=== PATIENT | male | born 1940 | race Caucasian/White ===

== ENCOUNTER 2022-12-18 19:20 | Emergency (ER) | payer MEDICARE, OTHER ==
[2022-12-18] MEDS ORDERED: Sodium Chloride 0.9% 10 ML Syringe FLUSH PRN (19:39)
[2022-12-18 20:06] LABS: ANION GAP 16.7 mEq/L (7-13)
[2022-12-18] MEDS ORDERED: Sodium Chloride 0.9% 1,000 ML IV ONE (20:15)
[2022-12-18 20:20] LABS: PTT,PARTIAL THROMBOPLSTIN TIME 21.9 SEC (22.0-34.0)
[2022-12-18] MEDS ORDERED: Heparin Sodium 5,000 Units/ML Vial IVPUSH ONE (23:12)
[2022-12-18] MEDS ORDERED: Clopidogrel 75 MG Tab PO ONE (23:29)
[2022-12-18] MEDS ORDERED: Heparin Sodium/0.45% NaCl 25,000 UNITS/500 ML BAG IV SCH (23:30)
[2022-12-18] MEDS ORDERED: Aspirin 81 MG Tab.Chew PO ONE (23:30)
[2022-12-19 00:06] VITALS: BP 93/62; PULSE 95
== END 2022-12-19 00:37 ==
LOC: DL.ED 19:20
DX: I21.4 Non-ST elevation (NSTEMI) myocardial infarction (principal); I25.10 Atherosclerotic heart disease of native coronary artery without angina pectoris; E78.00 Pure hypercholesterolemia, unspecified; I10 Essential (primary) hypertension; Z95.1 Presence of aortocoronary bypass graft; Z79.899 Other long term (current) drug therapy
CPT/HCPCS: 36415; 80053; 82272; 83880; 84484; 85025; 85610; 85730; 93005; 93010; 96361; 96365; 96376; 99285; A9270; J1644; J3490; J7030

== ENCOUNTER 2023-05-04 05:51 | Day surgery (SDC) | payer MEDICARE, OTHER ==
[2023-05-04] MEDS ORDERED: fentaNYL 100 MCG/2 ML SDV IV ONE ×3 (05:52→07:12)
[2023-05-04] MEDS ORDERED: Midazolam 1 MG/ML 2 ML SDV IV ONE ×2 (05:52→07:12)
[2023-05-04] MEDS ORDERED: Dextrose 5%-0.45% NaCl 1,000 ML IV SCH (06:30)
[2023-05-04] MEDS ORDERED: Midazolam 1 MG/ML 2 ML SDV ONE (07:01)
[2023-05-04] MEDS ORDERED: fentaNYL 100 MCG/2 ML SDV ONE (07:02)
[2023-05-04 08:37] VITALS: BP 176/67; PULSE 62
== END 2023-05-04 09:13 | disposition home or self-care (01) ==
LOC: DL.ENDO 05:51
PROVIDERS: ATTEND Internal Medicine Gastroenterology
DX: K25.9 Gastric ulcer, unspecified as acute or chronic, without hemorrhage or perforation (principal); K52.9 Noninfective gastroenteritis and colitis, unspecified; E78.5 Hyperlipidemia, unspecified; F41.1 Generalized anxiety disorder; I10 Essential (primary) hypertension; I25.10 Atherosclerotic heart disease of native coronary artery without angina pectoris; I25.2 Old myocardial infarction; I71.40 Abdominal aortic aneurysm, without rupture, unspecified; Z98.84 Bariatric surgery status
CPT/HCPCS: 43239; 87077; J2250; J3010; J7042

== ENCOUNTER 2024-02-23 12:02 | Emergency (ER) | payer MEDICARE, OTHER ==
[2024-02-23 12:24] VITALS: BP 201/94; PULSE 74
[2024-02-23] MEDS: Furosemide 40 MG/4 ML VIAL IVPUSH ONE (12:38)
== END 2024-02-23 13:24 ==
LOC: DL.ED 12:02
DX: I11.0 Hypertensive heart disease with heart failure (principal); I50.9 Heart failure, unspecified; E78.00 Pure hypercholesterolemia, unspecified; I25.10 Atherosclerotic heart disease of native coronary artery without angina pectoris; K21.9 Gastro-esophageal reflux disease without esophagitis; R79.89 Other specified abnormal findings of blood chemistry; Z79.82 Long term (current) use of aspirin; Z79.899 Other long term (current) drug therapy; Z95.1 Presence of aortocoronary bypass graft
CPT/HCPCS: 36415; 84484; 93005; 93010; 96374; 99284; 99285-25; J1940

== ENCOUNTER 2024-08-23 16:25 | Inpatient (IN) | payer MEDICARE, OTHER ==
[2024-08-23 16:47] LABS: BASOPHILS PERCENT AUTO 0.1 % (0.0-1.0); HEMATOCRIT 31.2 % (40.0-54.0); HEMOGLOBIN 10.4 g/dL (14.0-18.0); LYMPHOCYTES PERCENT AUTO 12.3 % (20.5-50.1); MEAN CORPUSCULAR HEMOGLOBIN 34.4 pg (27.0-34.0); MEAN CORPUSCULAR HGB CONC 33.3 g/dL (33.0-35.0); MEAN CORPUSCULAR VOLUME 103.3 fL (80-100); MONOCYTES PERCENT AUTO 12.7 % (2-8); NEUTROPHILS PERCENT AUTO 73.9 % (42.2-75.2); PLATELET COUNT,PLT 159 10^3/uL (150-450); RED BLOOD CELL COUNT 3.02 10^6/uL (4.6-6.2); WHITE BLOOD CELL COUNT,WBC 7.3 10^3/uL (5.0-10.0)
[2024-08-23] MEDS: Aspirin 81 MG Tab.Chew PO ONE (16:50)
[2024-08-23 17:11] LABS: A/G RATIO 0.9; ALANINE AMINOTRANSFERASE,ALT 20 U/L (16-63); ALBUMIN 3.6 g/dL (3.4-5.0); ALKALINE PHOSPHATASE 84 U/L (46-116); ASPARTATE AMNIOTRANSFERASE,AST 23 U/L (15-37); BILIRUBIN TOTAL 0.8 mg/dL (0.2-1.0); BLOOD UREA NITROGEN,BUN 19 mg/dL (7-18); BUN/CREATININE RATIO 12.3 (No establ ref range); C-REACTIVE PROTEIN 0.74 ng/dL (<=0.50); CALCIUM 8.7 mg/dL (8.5-10.1); CARBON DIOXIDE,CO2 24 mmol/L (21-32); CHLORIDE,CL 97 mmol/L (98-107); CREATININE 1.54 mg/dL (0.70-1.30); EST CRCL DRUG DOSING (CG) 17.32 mL/min; GLUCOSE RANDOM 122 mg/dL (70-99); LIPASE 42 U/L (16-77); MAGNESIUM 1.4 mg/dL (1.8-2.4); PROTEIN TOTAL,TP 7.6 g/dL (6.4-8.2); SODIUM,NA 133 mmol/L (136-145); TSH ULTRASENSITIVE 2.66 uIU/mL (0.36-3.74)
[2024-08-23] MEDS: Sodium Chloride 0.9% 10 ML Syringe FLUSH PRN (17:14)
[2024-08-23 17:22] LABS: ESTIMATED GFR 45 mL/min (>=60)
[2024-08-23 17:24] LABS: B-TYPE NATRIURETIC PEPTIDE,BNP > 5000 pg/ml (0-100)
[2024-08-23 17:37] LABS: FOLIC ACID 9.4 ng/mL (8.6-58.9)
[2024-08-23] MEDS: Bumetanide 1 MG/4 ML MDV IVPUSH ONE (17:40)
[2024-08-23] MEDS ORDERED: Metoprolol Tartrate 5 MG/5 ML SDV IVPUSH PRN (19:51)
[2024-08-23] MEDS: hydrALAZINE 20 MG/ML SDV IVPUSH PRN (20:15)
[2024-08-23] MEDS ORDERED: Sennosides/Docusate Sodium 50-8.6 MG Tab PO PRN (22:14)
[2024-08-23] MEDS ORDERED: HYDROmorphone 0.5 MG/0.5 ML Syringe IVPUSH PRN (22:14)
[2024-08-23] MEDS ORDERED: Acetaminophen 325 MG Tab PO PRN (22:14)
[2024-08-23] MEDS ORDERED: Magnesium Hydroxide 400 MG/5 ML Susp 30 ML Cup PO PRN (22:14)
[2024-08-23] MEDS ORDERED: Metoclopramide 10 MG/2 ML SDV IV PRN (22:14)
[2024-08-23] MEDS ORDERED: Polyethylene Glycol 3350 Powder 17 GM Packet PO PRN (22:14)
[2024-08-23] MEDS ORDERED: Naloxone 2 MG/2 ML Syringe IVPUSH PRN (22:14)
[2024-08-23] MEDS ORDERED: Ondansetron 4 MG/2 ML SDV IVPUSH PRN (22:14)
[2024-08-23] MEDS ORDERED: Albuterol/Ipratropium 3.0-0.5 MG/3 ML Neb Soln NEB PRN (22:14)
[2024-08-23] MEDS ORDERED: traMADol 50 MG Tab PO PRN (22:17)
[2024-08-23] MEDS ORDERED: hydrALAZINE 20 MG/ML SDV IVPUSH PRN (22:49)
[2024-08-23] MEDS: amLODIPine 5 MG Tab PO ONE (23:10)
[2024-08-24 06:48] LABS: BASOPHILS PERCENT AUTO 0.2 % (0.0-1.0); EOSINOPHILS PERCENT AUTO 1.9 % (1.0-3.0); HEMATOCRIT 27.1 % (40.0-54.0); HEMOGLOBIN 9.1 g/dL (14.0-18.0); LYMPHOCYTES PERCENT AUTO 13.2 % (20.5-50.1); MEAN CORPUSCULAR HEMOGLOBIN 34.1 pg (27.0-34.0); MEAN CORPUSCULAR HGB CONC 33.6 g/dL (33.0-35.0); MEAN CORPUSCULAR VOLUME 101.5 fL (80-100); MONOCYTES PERCENT AUTO 18.1 % (2-8); NEUTROPHILS PERCENT AUTO 66.6 % (42.2-75.2); PLATELET COUNT,PLT 122 10^3/uL (150-450); RED BLOOD CELL COUNT 2.67 10^6/uL (4.6-6.2); WHITE BLOOD CELL COUNT,WBC 5.3 10^3/uL (5.0-10.0)
[2024-08-24 07:23] LABS: ALBUMIN 3.2 g/dL (3.4-5.0); ANION GAP 12.5 mEq/L (7-13); BILIRUBIN TOTAL 0.9 mg/dL (0.2-1.0); CALCIUM 8.3 mg/dL (8.5-10.1); CREATININE 1.31 mg/dL (0.70-1.30); EST CRCL DRUG DOSING (CG) 42.06 mL/min; MAGNESIUM 1.5 mg/dL (1.8-2.4); POTASSIUM,K 3.5 mmol/L (3.5-5.1); PROTEIN TOTAL,TP 6.7 g/dL (6.4-8.2); T4 FREE 1.38 ng/dL (0.76-1.46)
[2024-08-24 07:29] LABS: A/G RATIO 0.91
[2024-08-24] MEDS: Clopidogrel 75 MG Tab PO SCH (09:16)
[2024-08-24] MEDS: Magnesium Sulfate/Water Premix 2 GM in Premix Bag 1 BAG IV ONE ×2 (09:16→16:32)
[2024-08-24] MEDS: Aspirin 81 MG Tab.Chew PO SCH (09:16)
[2024-08-24] MEDS: Bumetanide 1 MG Tab PO SCH (09:16)
[2024-08-24] MEDS: Sucralfate 1 GM Tab PO SCH (09:17)
[2024-08-24] MEDS: Metoprolol Succinate 50 MG Tab.ER PO SCH (09:17)
[2024-08-24] MEDS: amLODIPine 5 MG Tab PO SCH (09:17)
[2024-08-24] MEDS: Pantoprazole 40 MG Tab.CR PO SCH (09:17)
[2024-08-24] MEDS: ENTRESTO PO SCH (20:12)
[2024-08-24] MEDS: Melatonin 3 MG Tab PO PRN (20:13)
[2024-08-24] MEDS: Non-Formulary Medication 1 Each (Atorvastatin [Lipitor] 40 MG Tablet) PO SCH (22:55)
[2024-08-25 07:03] LABS: BASOPHILS PERCENT AUTO 0.4 % (0.0-1.0); EOSINOPHILS PERCENT AUTO 3.5 % (1.0-3.0); HEMATOCRIT 26.4 % (40.0-54.0); LYMPHOCYTES PERCENT AUTO 14.5 % (20.5-50.1); MEAN CORPUSCULAR HEMOGLOBIN 34.6 pg (27.0-34.0); MEAN CORPUSCULAR HGB CONC 34.1 g/dL (33.0-35.0); MEAN CORPUSCULAR VOLUME 101.5 fL (80-100); MONOCYTES PERCENT AUTO 16.4 % (2-8); NEUTROPHILS PERCENT AUTO 65.2 % (42.2-75.2); PLATELET COUNT,PLT 118 10^3/uL (150-450); WHITE BLOOD CELL COUNT,WBC 5.2 10^3/uL (5.0-10.0)
[2024-08-25 07:27] LABS: ANION GAP 11.8 mEq/L (7-13); BILIRUBIN TOTAL 0.6 mg/dL (0.2-1.0); BUN/CREATININE RATIO 14.6 (No establ ref range); CALCIUM 8.2 mg/dL (8.5-10.1); CREATININE 1.37 mg/dL (0.70-1.30); EST CRCL DRUG DOSING (CG) 40.22 mL/min; MAGNESIUM 2.2 mg/dL (1.8-2.4); POTASSIUM,K 3.8 mmol/L (3.5-5.1); PROTEIN TOTAL,TP 6.5 g/dL (6.4-8.2)
[2024-08-25 07:30] LABS: A/G RATIO 0.86
[2024-08-26 06:31] LABS: BASOPHILS PERCENT AUTO 0.4 % (0.0-1.0); EOSINOPHILS PERCENT AUTO 5.4 % (1.0-3.0); HEMATOCRIT 27.7 % (40.0-54.0); HEMOGLOBIN 9.3 g/dL (14.0-18.0); LYMPHOCYTES PERCENT AUTO 21.4 % (20.5-50.1); MEAN CORPUSCULAR HEMOGLOBIN 34.3 pg (27.0-34.0); MEAN CORPUSCULAR HGB CONC 33.6 g/dL (33.0-35.0); MEAN CORPUSCULAR VOLUME 102.2 fL (80-100); MONOCYTES PERCENT AUTO 17.6 % (2-8); NEUTROPHILS PERCENT AUTO 55.2 % (42.2-75.2); PLATELET COUNT,PLT 124 10^3/uL (150-450); RED BLOOD CELL COUNT 2.71 10^6/uL (4.6-6.2); WHITE BLOOD CELL COUNT,WBC 4.7 10^3/uL (5.0-10.0)
[2024-08-26 07:03] LABS: ANION GAP 12.5 mEq/L (7-13); BILIRUBIN TOTAL 0.5 mg/dL (0.2-1.0); BUN/CREATININE RATIO 15.2 (No establ ref range); CALCIUM 8.1 mg/dL (8.5-10.1); CREATININE 1.51 mg/dL (0.70-1.30); EST CRCL DRUG DOSING (CG) 35.28 mL/min; MAGNESIUM 1.9 mg/dL (1.8-2.4); POTASSIUM,K 4.5 mmol/L (3.5-5.1); PROTEIN TOTAL,TP 6.6 g/dL (6.4-8.2)
[2024-08-26 07:06] LABS: A/G RATIO 0.83
[2024-08-26 08:21] LABS: HEMOGLOBIN A1C 5.4 % (<5.7)
[2024-08-26 10:56] VITALS: BP 110/53; PULSE 67
[2024-08-26] MEDS ORDERED: atorvaSTATin 20 MG Tab PO SCH (21:00)
== END 2024-08-26 12:00 | disposition home or self-care (01) | DRG 280 ==
LOC: DL.ED 16:25 → DL.MS 19:08
PROVIDERS: ADMIT Internal Medicine; ATTEND Internal Medicine
DX: I21.4 Non-ST elevation (NSTEMI) myocardial infarction (principal); I50.9 Heart failure, unspecified; I50.33 Acute on chronic diastolic (congestive) heart failure; E87.1 Hypo-osmolality and hyponatremia; N17.9 Acute kidney failure, unspecified; Z79.899 Other long term (current) drug therapy; Z79.02 Long term (current) use of antithrombotics/antiplatelets; Z79.82 Long term (current) use of aspirin; I25.10 Atherosclerotic heart disease of native coronary artery without angina pectoris; K21.9 Gastro-esophageal reflux disease without esophagitis; K52.9 Noninfective gastroenteritis and colitis, unspecified; G89.29 Other chronic pain; E53.8 Deficiency of other specified B group vitamins; E83.42 Hypomagnesemia; E87.8 Other disorders of electrolyte and fluid balance, not elsewhere classified; Z66 Do not resuscitate; F17.210 Nicotine dependence, cigarettes, uncomplicated; G43.909 Migraine, unspecified, not intractable, without status migrainosus; E78.00 Pure hypercholesterolemia, unspecified; M54.9 Dorsalgia, unspecified; G40.909 Epilepsy, unspecified, not intractable, without status epilepticus; F41.9 Anxiety disorder, unspecified; I11.0 Hypertensive heart disease with heart failure; D53.9 Nutritional anemia, unspecified; R73.9 Hyperglycemia, unspecified; Z91.148 Patient's other noncompliance with medication regimen for other reason; Z95.1 Presence of aortocoronary bypass graft
CPT/HCPCS: 36415; 71045; 80053; 82607; 82746; 83690; 83735; 83880; 84443; 84484 ×2; 85025; 86140; 87428; 93005; 96374; 99285; A9270; J3490; 80061; 82947; 83036; 84439; 93010; J0360; J3475

== ENCOUNTER 2025-01-21 12:40 | Emergency (ER) | payer MEDICARE, OTHER ==
[2025-01-21] MEDS ORDERED: Sodium Chloride 0.9% 10 ML Syringe FLUSH PRN (12:54)
[2025-01-21 13:09] LABS: BASOPHILS PERCENT AUTO 0.2 % (0.0-1.0); EOSINOPHILS PERCENT AUTO 0.5 % (1.0-3.0); HEMATOCRIT 23.3 % (40.0-54.0); LYMPHOCYTES PERCENT AUTO 13.7 % (20.5-50.1); MEAN CORPUSCULAR HGB CONC 34.3 g/dL (33.0-35.0); MEAN CORPUSCULAR VOLUME 99.1 fL (80-100); MONOCYTES PERCENT AUTO 16.3 % (2-8); NEUTROPHILS PERCENT AUTO 69.3 % (42.2-75.2); PLATELET COUNT,PLT 104 10^3/uL (150-450); RED BLOOD CELL COUNT 2.35 10^6/uL (4.6-6.2); WHITE BLOOD CELL COUNT,WBC 5.7 10^3/uL (5.0-10.0)
[2025-01-21 13:29] LABS: INR 1.2 (0.9-1.2); PROTHROMBIN TIME 12.8 SEC (9.0-12.0); PTT,PARTIAL THROMBOPLSTIN TIME 26.7 SEC (22.0-34.0)
[2025-01-21 13:32] LABS: ALBUMIN 3.3 g/dL (3.4-5.0); ANION GAP 17.6 mEq/L (7-13); CALCIUM 8.3 mg/dL (8.5-10.1); CREATININE 2.26 mg/dL (0.70-1.30); EST CRCL DRUG DOSING (CG) 24.38 mL/min; POTASSIUM,K 3.6 mmol/L (3.5-5.1)
[2025-01-21 13:33] LABS: A/G RATIO 0.89
[2025-01-21 13:46] VITALS: BP 153/74; PULSE 77
== END 2025-01-21 15:01 ==
LOC: DL.ED 12:40
DX: I11.0 Hypertensive heart disease with heart failure (principal); I50.9 Heart failure, unspecified; N17.9 Acute kidney failure, unspecified; R79.89 Other specified abnormal findings of blood chemistry; E78.00 Pure hypercholesterolemia, unspecified; I25.10 Atherosclerotic heart disease of native coronary artery without angina pectoris; K21.9 Gastro-esophageal reflux disease without esophagitis; Z79.82 Long term (current) use of aspirin; Z79.899 Other long term (current) drug therapy
CPT/HCPCS: 36415; 71045; 80053; 83880; 84484; 85025; 85610; 85730; 93005; 93010; 99285

== ENCOUNTER 2025-04-08 17:01 | Inpatient (IN) | payer MEDICARE, OTHER ==
[2025-04-08 17:58] LABS: BLOOD UREA NITROGEN,BUN 29 mg/dL (7-18); CARBON DIOXIDE,CO2 27 mmol/L (21-32); CHLORIDE,CL 98 mmol/L (98-107); CREATININE 1.76 mg/dL (0.70-1.30); GLUCOSE RANDOM 134 mg/dL (70-99); POTASSIUM,K 2.9 mmol/L (3.5-5.1); SODIUM,NA 135 mmol/L (136-145)
[2025-04-08 17:59] LABS: ESTIMATED GFR 38 mL/min (>=60)
[2025-04-08] MEDS: Magnesium Sulfate 2 GM/50 mL 2 GM in Premix Bag 1 BAG IV ONE (17:59)
[2025-04-08] MEDS: Potassium Chloride 10 MEQ Tab.ER PO ONE (18:00)
[2025-04-08 18:13] LABS: BASOPHILS PERCENT AUTO 0.1 % (0.0-1.0); EOSINOPHILS PERCENT AUTO 1.6 % (1.0-3.0); LYMPHOCYTES PERCENT AUTO 12.8 % (20.5-50.1); MONOCYTES PERCENT AUTO 12.4 % (2-8); NEUTROPHILS PERCENT AUTO 73.1 % (42.2-75.2); PLATELET COUNT,PLT 125 10^3/uL (150-450); RED BLOOD CELL COUNT 3.14 10^6/uL (4.6-6.2); WHITE BLOOD CELL COUNT,WBC 8.1 10^3/uL (5.0-10.0)
[2025-04-08 18:25] LABS: A/G RATIO 0.71; ALANINE AMINOTRANSFERASE,ALT 13 U/L (16-63); ASPARTATE AMNIOTRANSFERASE,AST 19 U/L (15-37); BILIRUBIN TOTAL 0.6 mg/dL (0.2-1.0); BLOOD UREA NITROGEN,BUN 29 mg/dL (7-18); CARBON DIOXIDE,CO2 26 mmol/L (21-32); CHLORIDE,CL 97 mmol/L (98-107); CREATININE 1.81 mg/dL (0.70-1.30); ESTIMATED GFR 37 mL/min (>=60); GLUCOSE RANDOM 134 mg/dL (70-99); POTASSIUM,K 2.8 mmol/L (3.5-5.1); PROTEIN TOTAL,TP 7.7 g/dL (6.4-8.2); SODIUM,NA 135 mmol/L (136-145)
[2025-04-08] MEDS ORDERED: Nitroglycerin 0.4 MG Tab.SL SL PRN (19:03)
[2025-04-08 19:33] LABS: T4 FREE 1.32 ng/dL (0.76-1.46); TSH ULTRASENSITIVE 1.28 uIU/mL (0.36-3.74)
[2025-04-08] MEDS: Potassium Chloride 20 MEQ in Premix Bag 1 BAG IV ONE (20:14)
[2025-04-08] MEDS: Magnesium Sulf/Wat 4 GM/50 mL 4 GM in Premix Bag 1 BAG IV ONE (20:15)
[2025-04-08] MEDS: Phosphorus #1 250 MG Tab PO SCH (20:40)
[2025-04-08] MEDS: Heparin Sodium 5,000 Units/ML Vial SUBCUT SCH (22:03)
[2025-04-09 05:59] LABS: PLATELET COUNT,PLT 113.0 10^3/uL (150-450); RED BLOOD CELL COUNT 2.67 10^6/uL (4.6-6.2); WHITE BLOOD CELL COUNT,WBC 5.6 10^3/uL (5.0-10.0)
[2025-04-09 06:19] LABS: BLOOD UREA NITROGEN,BUN 23.0 mg/dL (7-18); CARBON DIOXIDE,CO2 25.0 mmol/L (21-32); CHLORIDE,CL 103.0 mmol/L (98-107); CREATININE 1.41 mg/dL (0.70-1.30); EST CRCL DRUG DOSING (CG) 39.08 mL/min; GLUCOSE RANDOM 94.0 mg/dL (70-99); PHOSPHORUS 3.2 mg/dL (2.6-4.7); POTASSIUM,K 3.1 mmol/L (3.5-5.1); SODIUM,NA 138.0 mmol/L (136-145)
[2025-04-09 06:20] LABS: ESTIMATED GFR 50.0 mL/min (>=60)
[2025-04-09 08:23] LABS: FOLIC ACID 9.7 ng/mL (8.6-58.9)
[2025-04-09] MEDS: ENTRESTO PO SCH (09:34)
[2025-04-09] MEDS: Cholecalciferol (Vitamin D3) 25 MCG Tab PO SCH (09:35)
[2025-04-09] MEDS: Potassium Chloride 10 MEQ Tab.ER PO SCH (09:35)
[2025-04-09] MEDS: Cyanocobalamin (Vitamin B12) 1,000 MCG/ML SDV IM ONE (12:42)
[2025-04-09 15:59] LABS: IRON,FE 30.0 ug/dL (65-175); PERCENT FE SATURATION 18.0 % (20.0-50.0)
[2025-04-10 05:59] LABS: BASOPHILS PERCENT AUTO 0.4 % (0.0-1.0); EOSINOPHILS PERCENT AUTO 1.8 % (1.0-3.0); LYMPHOCYTES PERCENT AUTO 11.3 % (20.5-50.1); MONOCYTES PERCENT AUTO 13.9 % (2-8); NEUTROPHILS PERCENT AUTO 72.6 % (42.2-75.2); PLATELET COUNT,PLT 115 10^3/uL (150-450); RED BLOOD CELL COUNT 2.61 10^6/uL (4.6-6.2); WHITE BLOOD CELL COUNT,WBC 6.8 10^3/uL (5.0-10.0)
[2025-04-10 06:18] LABS: ALANINE AMINOTRANSFERASE,ALT 12.0 U/L (16-63); ASPARTATE AMNIOTRANSFERASE,AST 17.0 U/L (15-37); BILIRUBIN TOTAL 0.5 mg/dL (0.2-1.0); BLOOD UREA NITROGEN,BUN 22.0 mg/dL (7-18); CARBON DIOXIDE,CO2 24.0 mmol/L (21-32); CHLORIDE,CL 102.0 mmol/L (98-107); CREATININE 1.33 mg/dL (0.70-1.30); EST CRCL DRUG DOSING (CG) 41.43 mL/min; GLUCOSE RANDOM 102.0 mg/dL (70-99); POTASSIUM,K 3.4 mmol/L (3.5-5.1); PROTEIN TOTAL,TP 6.8 g/dL (6.4-8.2); SODIUM,NA 136.0 mmol/L (136-145)
[2025-04-10 06:20] LABS: A/G RATIO 0.66; ESTIMATED GFR 53.0 mL/min (>=60)
[2025-04-10] MEDS: Potassium Chloride 10 MEQ Tab.ER PO SCH (09:19)
[2025-04-10] MEDS: Cyanocobalamin (Vitamin B12) 1,000 MCG/ML SDV IM ONE (09:23)
[2025-04-10 12:14] VITALS: BP 148/88; PULSE 87
[2025-04-11 09:47] LABS: IONIZED CA@PH7.4 1.04 mmol/L (1.09-1.30); IONIZED CALCIUM 0.98 mmol/L (1.09-1.30)
== END 2025-04-10 13:49 | DRG 641 ==
LOC: DL.ED 17:01 → DL.MS 18:16 → OBSVTOIN 04-09 14:02
PROVIDERS: ADMIT Internal Medicine; ATTEND Student in an Organized Health Care Education/Training Program
DX: E87.6 Hypokalemia (principal); I13.0 Hypertensive heart and chronic kidney disease with heart failure and stage 1 through stage 4 chronic kidney disease, or unspecified chronic kidney disease; I10 Essential (primary) hypertension; I25.810 Atherosclerosis of coronary artery bypass graft(s) without angina pectoris; K92.2 Gastrointestinal hemorrhage, unspecified; Z66 Do not resuscitate; I25.10 Atherosclerotic heart disease of native coronary artery without angina pectoris; I50.9 Heart failure, unspecified; N18.9 Chronic kidney disease, unspecified; H91.90 Unspecified hearing loss, unspecified ear; H54.7 Unspecified visual loss; E78.00 Pure hypercholesterolemia, unspecified; K21.9 Gastro-esophageal reflux disease without esophagitis; M19.90 Unspecified osteoarthritis, unspecified site; M54.9 Dorsalgia, unspecified; G89.29 Other chronic pain; M54.2 Cervicalgia; G43.909 Migraine, unspecified, not intractable, without status migrainosus; R56.9 Unspecified convulsions; F41.9 Anxiety disorder, unspecified; D64.9 Anemia, unspecified; E83.42 Hypomagnesemia; E83.51 Hypocalcemia; F17.200 Nicotine dependence, unspecified, uncomplicated; D69.6 Thrombocytopenia, unspecified; E53.8 Deficiency of other specified B group vitamins; Z79.82 Long term (current) use of aspirin; Z90.49 Acquired absence of other specified parts of digestive tract; Z79.899 Other long term (current) drug therapy; Z98.890 Other specified postprocedural states
CPT/HCPCS: 36415 ×2; 71046; 80048 ×2; 80053; 82330; 82607; 82728; 82746; 83540; 83550; 83735 ×2; 84100; 84132; 84439; 84443; 85025; 85027; 86850; 86900; 86901; 96365; 99223; 99285; A9270 ×13; J0612; J1644 ×2; J3420; J3475 ×2; J3480; 82272; 99233